=== PATIENT | female | born 1970 | race Two or more races ===

== ENCOUNTER 2016-08-22 00:35 | Emergency (ER) | payer MEDICAID ==
[~2016-08-22] VITALS: Ht 167.6 cm; Wt 81.6 kg
[2016-08-22 00:58] VITALS: BP 101/66
== END 2016-08-22 02:56 | disposition left against medical advice (07) ==
LOC: EDBD 00:35 → ER 00:35
DX: N64.4 Mastodynia (principal); Z53.21 Procedure and treatment not carried out due to patient leaving prior to being seen by health care provider

== ENCOUNTER 2016-10-16 21:21 | Emergency (ER) | payer MEDICAID ==
[2016-10-16 21:42] VITALS: BP 122/84
== END 2016-10-17 01:14 | disposition home or self-care (01) ==
LOC: EDBD 21:21 → ER 21:24
DX: S02.401A Maxillary fracture, unspecified side, initial encounter for closed fracture (principal); S00.93XA Contusion of unspecified part of head, initial encounter; S00.83XA Contusion of other part of head, initial encounter; J32.0 Chronic maxillary sinusitis; J21.9 Acute bronchiolitis, unspecified; F17.210 Nicotine dependence, cigarettes, uncomplicated; K21.9 Gastro-esophageal reflux disease without esophagitis; Y08.89XA Assault by other specified means, initial encounter; Y93.89 Activity, other specified; Y99.8 Other external cause status; Y92.89 Other specified places as the place of occurrence of the external cause
CPT/HCPCS: 70450; 70486

== ENCOUNTER 2018-07-07 09:24 | Emergency (ER) | payer MEDICAID ==
[~2018-07-07] VITALS: Ht 157.5 cm; Wt 93.9 kg
[2018-07-07 12:19] VITALS: BP 108/65
== END 2018-07-07 12:21 | disposition home or self-care (01) ==
LOC: ER 09:27
DX: J02.9 Acute pharyngitis, unspecified (principal); K21.9 Gastro-esophageal reflux disease without esophagitis; F17.210 Nicotine dependence, cigarettes, uncomplicated

== ENCOUNTER 2018-07-13 09:40 | Emergency (ER) | payer MEDICAID ==
[~2018-07-13] VITALS: Ht 160 cm; Wt 99.8 kg
[2018-07-13 09:58] VITALS: BP 113/81
[2018-07-13] MEDS ORDERED: KETOROLAC TROMETH 60MG/2ML VIAL IM ONE (12:00)
== END 2018-07-13 12:20 | disposition home or self-care (01) ==
LOC: ER 09:40
DX: S83.92XA Sprain of unspecified site of left knee, initial encounter (principal); F17.210 Nicotine dependence, cigarettes, uncomplicated; K21.9 Gastro-esophageal reflux disease without esophagitis; X50.1XXA Overexertion from prolonged static or awkward postures, initial encounter; Y93.89 Activity, other specified; Y99.8 Other external cause status; Y92.89 Other specified places as the place of occurrence of the external cause
CPT/HCPCS: 73562; 96372; 99283; J1885

== ENCOUNTER 2021-02-26 17:05 | Emergency (ER) | payer MEDICAID ==
[~2021-02-26] VITALS: Ht 160 cm; Wt 90.7 kg
[2021-02-26 20:03] VITALS: BP 124/71
== END 2021-02-26 20:39 | disposition home or self-care (01) ==
LOC: ER 17:05
DX: S53.491A Other sprain of right elbow, initial encounter (principal); E66.9 Obesity, unspecified; K21.9 Gastro-esophageal reflux disease without esophagitis; F17.210 Nicotine dependence, cigarettes, uncomplicated; Z68.35 Body mass index [BMI] 35.0-35.9, adult; W22.8XXA Striking against or struck by other objects, initial encounter; Y93.89 Activity, other specified; Y92.89 Other specified places as the place of occurrence of the external cause; Y99.8 Other external cause status
CPT/HCPCS: 73080

== ENCOUNTER 2021-07-10 03:28 | Emergency (ER) | payer MEDICAID ==
[~2021-07-10] VITALS: Ht 160 cm; Wt 90.7 kg
[2021-07-10 05:27] VITALS: BP 110/72
== END 2021-07-10 05:37 | disposition home or self-care (01) ==
LOC: EDBD 03:28 → ER 03:28
DX: S80.01XA Contusion of right knee, initial encounter (principal); K21.9 Gastro-esophageal reflux disease without esophagitis; F17.210 Nicotine dependence, cigarettes, uncomplicated; W19.XXXA Unspecified fall, initial encounter; Y93.89 Activity, other specified; Y92.89 Other specified places as the place of occurrence of the external cause; Y99.8 Other external cause status
CPT/HCPCS: 73562

== ENCOUNTER 2021-09-29 02:22 | Emergency (ER) | payer MEDICAID ==
[~2021-09-29] VITALS: Ht 160 cm; Wt 90.7 kg
[2021-09-29 03:47] LABS: Basophils # (auto) 0.1 10 ^3/uL (0-0.2); Hemoglobin 14.7 g/dL (12.2-16.2); Lymphocytes # (auto) 3.4 10 ^3/uL (0.4-5.4); Monocytes # (auto) 0.4 10 ^3/uL (0-1.3); White Blood Cell 7.4 10^3/uL (4.4-10.8)
[2021-09-29 03:49] LABS: Basophils % (auto) 1.3 % (0.0-2.0); Eosinophils # (auto) 0.2 10 ^3/uL (0-0.8); Eosinophils % (auto) 3.3 % (0.0-7.0); Hematocrit 41.1 % (36.0-46.0); Lymphocytes % (auto) 46.2 % (10.0-50.0); Mean Corpuscular Hemoglobin 34.5 pg (28.0-32.0); Mean Corpuscular Hgb Conc. 35.8 g/dL (32.0-36.0); Mean Corpuscular Volume 96.3 fL (80.0-100.0); Monocytes % (auto) 5.8 % (0.0-12.0); Neutrophils # (auto) 3.2 10 ^3/uL (1.6-8.6); Neutrophils % (auto) 43.4 % (37.0-80.0); Nucleated Red Blood Cells % 0.1 %; Red Blood Cells 4.27 10^6/uL (4.0-5.20); Red Cell Distribution Width 12.6 % (11.8-14.3)
[2021-09-29 04:07] LABS: Albumin 3.5 g/dL (3.4-5.0); Magnesium 2.3 mg/dL (1.6-2.6); Potassium 3.4 mmol/L (3.5-5.1)
[2021-09-29 04:12] LABS: BUN/Creatinine Ratio 11.1; Bilirubin, Total 0.6 mg/dL (0.2-1.0); Total Protein 6.2 g/dL (6.4-8.2)
[2021-09-29 05:09] VITALS: BP 93/55
[2021-09-29] MEDS ORDERED: KETOROLAC TROMETH 30 MG/ML 1ML VIAL IV ONE (05:45)
== END 2021-09-29 05:55 | disposition home or self-care (01) ==
LOC: EDBD 02:22 → EDUNIT# 02:22 → ER 02:22
DX: R07.89 Other chest pain (principal); F17.210 Nicotine dependence, cigarettes, uncomplicated; J44.9 Chronic obstructive pulmonary disease, unspecified; K21.9 Gastro-esophageal reflux disease without esophagitis
CPT/HCPCS: 36415; 71045; 80053; 83735; 84443; 84484; 85025; 93005; 96374; 99285; J1885

== ENCOUNTER 2023-02-02 00:19 | Emergency (ER) | payer MEDICAID ==
[~2023-02-02] VITALS: Ht 160 cm; Wt 99.7 kg
[2023-02-02] MEDS ORDERED: CEPH500C PO (01:41)
[2023-02-02 01:58] VITALS: BP 116/53; PULSE 98; RESP 18; TEMP 97.7; O2SAT 95
== END 2023-02-02 02:05 | disposition home or self-care (01) ==
LOC: ER 00:19
DX: N64.59 Other signs and symptoms in breast (principal); J44.9 Chronic obstructive pulmonary disease, unspecified; K21.9 Gastro-esophageal reflux disease without esophagitis; F17.210 Nicotine dependence, cigarettes, uncomplicated

== ENCOUNTER 2023-09-01 03:17 | Emergency (ER) | payer MEDICAID ==
[~2023-09-01] VITALS: Ht 165.1 cm; Wt 90.7 kg
[~2023-09-01 03:17] MED LIST: CEPH500C PO
[2023-09-01 05:04] LABS: Basophils # (auto) 0.1 10 ^3/uL (0-0.2); Basophils % (auto) 1.5 % (0.0-2.0); Eosinophils # (auto) 0.1 10 ^3/uL (0-0.8); Eosinophils % (auto) 1.3 % (0.0-7.0); Hematocrit 45.3 % (36.0-46.0); Hemoglobin 15.6 g/dL (12.2-16.2); Lymphocytes # (auto) 3.5 10 ^3/uL (0.4-5.4); Lymphocytes % (auto) 39.5 % (10.0-50.0); Mean Corpuscular Hemoglobin 32.1 pg (28.0-32.0); Mean Corpuscular Hgb Conc. 34.4 g/dL (32.0-36.0); Mean Corpuscular Volume 93.3 fL (80.0-100.0); Monocytes # (auto) 0.5 10 ^3/uL (0-1.3); Monocytes % (auto) 5.2 % (0.0-12.0); Neutrophils # (auto) 4.6 10 ^3/uL (1.6-8.6); Neutrophils % (auto) 52.5 % (37.0-80.0); Nucleated Red Blood Cells % 0.1 %; Red Blood Cells 4.86 10^6/uL (4.0-5.20); Red Cell Distribution Width 13.6 % (11.8-14.3); White Blood Cell 8.8 10^3/uL (4.4-10.8)
[2023-09-01 05:10] VITALS: PULSE 83; RESP 20; O2SAT 97
[2023-09-01 05:13] LABS: Chloride 105 mmol/L (98-107); Potassium 3.4 mmol/L (3.5-5.1); Sodium 136 mmol/L (136-145)
[2023-09-01 05:14] LABS: Anion Gap 11 (5-15); Carbon Dioxide 20 mmol/L (20-30)
[2023-09-01 05:15] LABS: Calcium 9.3 mg/dL (8.5-10.1)
[2023-09-01 05:20] LABS: BUN/Creatinine Ratio 8.2 (10.0-20.0); Blood Alcohol 163.4 mg/dL (<10); Blood Urea Nitrogen 6 mg/dL (9-23); Glucose 122 mg/dL (74-106)
[2023-09-01 05:23] LABS: Acetaminophen < 2.0 UG/ML (10.0-20.0)
[2023-09-01 05:27] LABS: Salicylate < 3.0 mg/dL (2.8-20.0)
[2023-09-01 08:10] VITALS: RESP 16; O2SAT 99
[2023-09-01 09:56] LABS: Chloride 108 mmol/L (98-107)
[2023-09-01 09:57] LABS: Anion Gap 10 (5-15); Carbon Dioxide 20 mmol/L (20-30); Sodium 138 mmol/L (136-145)
[2023-09-01 09:58] LABS: Calcium 9.2 mg/dL (8.5-10.1)
[2023-09-01 10:03] LABS: BUN/Creatinine Ratio 7.4 (10.0-20.0); Blood Urea Nitrogen 5 mg/dL (9-23); Glucose 111 mg/dL (74-106)
[2023-09-01 20:40] VITALS: PULSE 82; RESP 16; O2SAT 97
[2023-09-02 10:30] VITALS: BP 111/50; PULSE 78; RESP 20; TEMP 97.9; O2SAT 97
[2023-09-02] MEDS: PANTOPRAZOLE 40 MG TAB PO ONE (15:54)
== END 2023-09-02 16:45 | disposition left against medical advice (07) ==
LOC: ER 03:17 → EDBD 03:17 → ER 09-02 16:45
DX: R45.851 Suicidal ideations (principal); F10.10 Alcohol abuse, uncomplicated; J44.9 Chronic obstructive pulmonary disease, unspecified; F17.210 Nicotine dependence, cigarettes, uncomplicated
CPT/HCPCS: 36415; 80048; 80320; 80329; 85025; 93005

== ENCOUNTER 2024-04-15 11:51 | Emergency (ER) | payer MEDICAID ==
[~2024-04-15] VITALS: Ht 160 cm; Wt 102.5 kg
[2024-04-15 13:12] VITALS: BP 130/67; PULSE 80; RESP 18; TEMP 98.2; O2SAT 95
[2024-04-15] MEDS ORDERED: BENZ100C97 PO (13:48)
[2024-04-15] MEDS ORDERED: ALBU108A5 IN (13:48)
[2024-04-15] MEDS ORDERED: AZIT-43 PO (13:48)
[2024-04-15] MEDS ORDERED: PROM1SOL4 PO (13:48)
--- NOTE | 2024-04-15 13:48 | ED.PDOC ---
SOB-HPI HPI Comments 53-year-old smoker presents with a chief complaint of a nonproductive cough x2 weeks. Able to get minimal relief with [id number] ibuprofen. 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 Family History Family History: Reviewed,noncontributory to illness Social History Smoker: Cigarettes, Less Than 1 Pack/Day Alcohol: Occasionally Drugs: Denies Drug Use Lives In: Home All Other Systems: Reviewed and Negative (Per HPI) Physical Exam General Appearance: No Apparent Distress, Normal HEENT: Normal ENT Inspection, Pharynx Normal, TMs Normal Neck: Full Range of Motion, Non-Tender, Normal, Normal Inspection Respiratory: Chest Non-Tender, Lungs Clear, No Accessory Muscle Use, No Respiratory Distress, Normal Breath Sounds Cardiovascular: No Edema, No JVD, No Murmur, No Gallop, Normal Peripheral Pulses, Regular Rate/Rhythm Breast Exam: Deferred Gastrointestinal: No Organomegaly, Non Tender, No Pulsatile Mass, Normal Bowel Sounds, Soft Genitalia: Deferred Pelvic: Deferred Rectal: Deferred Extremities: No calf tenderness, Normal capillary refill, Normal inspection, Normal range of motion, Non-tender, No pedal edema Musculoskeletal : Apperance: Normal Neurologic: Alert, conference services director II-XII nml as Tested, No Motor Deficits, Normal Affect, Normal Mood, No Sensory Deficits Cerebellar Function: Normal Reflexes: Normal Skin: Dry, Normal Color, Warm Lymphatic: No Adenopathy Was a procedure done? Was a procedure done?: No Differential Dx Differential Diagnosis: Bronchitis X-Ray, Labs, Meds, VS Vital Signs Date Time Temp Pulse Resp B/P (MAP) Pulse Ox O2 Delivery O2 Flow Rate FiO2 04/15/24 13:12 98.2 95 18 130/67 (88) 95 98.2 04/15/24 13:12 80 18 95 Room Air 04/15/24 12:40 97.9 81 18 132/65 (87) 95 X-Ray, Labs, Meds, VS Comment Empiric treatment. No red flags. The patient nontoxic non ill-appearing. Smoking cessation advised. Return precautions discussed Time of 1ST Reevaluation: 13:46 Reevaluation 1ST: Improved Patient Education/Counseling: Diagnosis, Treatment Family Education/Counseling: Diagnosis, Treatment Departure 1 Departure Time of Disposition: 13:46 Impression: Primary Impression: Bronchitis Disposition: HOME / SELF CARE / HOMELESS Condition: Stable e-Prescriptions Albuterol Sulfate (Albuterol Sulfate Hfa) 108 Mcg/Act Aer 108 MCG IN Q6HPRN PRN for 30 Days, #1 AER 0 Refills Prov: NEWTON TOMAS NP 04/15/24 Azithromycin (Azithromycin) 250 Mg Tab 250 MG PO DAILY MDD 500 for 5 Days, #6 TAB 0 Refills 2 TABLETS ORALLY ON DAY ONE, THEN 1 TABLET ORALLY DAILY FOR 4 DAYS Prov: NEWTON TOMAS NP 04/15/24 Promethazine-Dm (Promethazine Dm 6.25-15 mg/5Ml) 1 Keerthi Keerthi 5 ML PO TID for 10 Days, #150 ML 0 Refills Prov: NEWTON TOMAS NP 04/15/24 Benzonatate (Benzonatate) 100 Mg Cap 1 CAP PO TID for 10 Days, #30 CAP 0 Refills Prov: NEWTON TOMAS NP 04/15/24 Discharged With: Self Critical Care Note Critical Care Time?: No Stability Stability form required: No Heart Score Heart Score: Heart Score Response (Comments) Value History N/A 0 EKG N/A 0 Age N/A 0 Risk Factors N/A 0 Troponin N/A 0 Total 0 NEWTON TOMAS NP Apr 15, 2024 13:48
[2024-04-15] MEDS: DexAMETHasone SOD PHOS 10MG/1ML VIAL INJ IM ONE (13:59)
== END 2024-04-15 14:05 | disposition home or self-care (01) ==
LOC: ER 11:51
DX: J40 Bronchitis, not specified as acute or chronic (principal); F17.210 Nicotine dependence, cigarettes, uncomplicated; J44.9 Chronic obstructive pulmonary disease, unspecified
CPT/HCPCS: 96372; 99283; J1100

== ENCOUNTER 2024-11-01 03:39 | Emergency (ER) | payer MEDICAID ==
[~2024-11-01] VITALS: Ht 160 cm; Wt 86.2 kg
[~2024-11-01 03:39] MED LIST changes: +ALBU108A5 IN; +AZIT-43 PO; +BENZ100C97 PO; +PROM1SOL4 PO
--- NOTE | 2024-11-01 04:40 | ED.PDOC ---
GI ASSESSMENT HPI Comments 54-year-old female came to ER for GI bleed. Patient does have hemorrhoids. States for the past 4-5 months she has been having rectal pain. For the past 2 days she has been having bright red rectal bleeding, progressively worsening. Denies any nausea or vomiting. Denies any constipation. Chief Complaint: GI Bleed Time Seen by MD: 04:39 Primary Care Provider: Matthew Buck Notes: Nurses Notes Allergies: Coded Allergies: NO KNOWN ALLERGIES (Unverified , 12/23/12) Home Meds Active Scripts Albuterol Sulfate (Albuterol Sulfate Hfa) 108 Mcg/Act Aer, 108 MCG IN Q6HPRN PRN for 30 Days, #1 AER 0 Refills Prov:NEWTON TOMAS NP 04/15/24 Azithromycin (Azithromycin) 250 Mg Tab, 250 MG PO DAILY MDD 500 for 5 Days, #6 TAB 0 Refills 2 TABLETS ORALLY ON DAY ONE, THEN 1 TABLET ORALLY DAILY FOR 4 DAYS Prov:NEWTON TOMAS NP 04/15/24 Promethazine-Dm (Promethazine Dm 6.25-15 mg/5Ml) 1 Keerthi Keerthi, 5 ML PO TID for 10 Days, #150 ML 0 Refills Prov:NEWTON TOMAS NP 04/15/24 Benzonatate (Benzonatate) 100 Mg Cap, 1 CAP PO TID for 10 Days, #30 CAP 0 Refills Prov:NEWTON TOMAS NP 04/15/24 Cephalexin Monohydrate (Cephalexin) 500 Mg Cap, 1 CAP PO QID for 7 Days, #28 CAP 0 Refills Prov:MARTIN ORONA 02/02/23 Information Source: Patient Mode of Arrival: EMS Timing: Days Duration: Intermittent Prehospital treatment: None Quality: Burning Vomitus: None Stool: Blood Streaked Severity: Moderate Recent: Other (Hemorrhoids) Pain Location: Other (Rectal pain) Associated sign and symptoms: Blood in Stool Review of Systems REVIEW OF SYSTEMS: No fever, no chills, or fatigue HEENT: No sore throat, no earache, no congestion, no neck pain. Cardiac: No chest pain. No palpitations. Lungs: No shortness of breath, no cough. GI: No nausea, no vomiting, no diarrhea, no constipation, no abdominal pain (+) rectal pain/ bleeding : No dysuria, frequency, or urgency. No hematuria. Musculoskeletal: No joint pain , no joint swelling, no extremity edema. Skin: No rash, no itching. Neuro: No headache, no dizziness, no weakness Vital Signs Vital Signs Date Time Temp Pulse Resp B/P (MAP) Pulse Ox O2 Delivery O2 Flow Rate FiO2 11/01/24 07:57 98.7 58 17 100/68 (79) 97 98.7 11/01/24 07:57 Room Air Physical Exam General: Awake, alert and oriented. No acute distress. Skin: Skin in warm, dry and intact. Appropriate color for ethnicity. Nailbeds pink with no cyanosis. HEENT: The head is normocephalic and atraumatic. Conjunctivae are clear without exudates or hemorrhage. Neck: The neck is supple with normal range of motion. Cardiac: Heart rate and rhythm are normal. No murmurs, gallops, or rubs are auscultated. Respiratory: No signs of respiratory distress. Lung sounds are clear in all lobes bilaterally without rales, rhonchi, or wheezes. Abdominal: Abdomen is soft, non-tender without distention. Bowel sounds are present and normoactive in all four quadrants. : No rectal bleeding, positive perirectal tenderness, no hemorrhoid or fissure noted Extremities: Upper and lower extremities are atraumatic in appearance without deformity or edema. Neurological: The patient is awake, alert and oriented to person, place, and time with normal speech. Speech is clear. There is no facial asymmetry. Psychiatric: Appropriate mood and affect. Good judgement and insight. 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 Was a procedure done?: No GI differential Dx Differential Diagnosis: Gastritis/PUD, Gastroenteritis, GI hemorrhage, Hernia, Inflammatory BD, Mass, Anemia, Other (Constipation, rectal fissure, Hemorrhoid, rectal abscess, other) X-Ray, Labs, Meds, VS Vital Signs Date Time Temp Pulse Resp B/P (MAP) Pulse Ox O2 Delivery O2 Flow Rate FiO2 11/01/24 07:57 98.7 58 17 100/68 (79) 97 98.7 11/01/24 07:57 58 16 97 Room Air 11/01/24 06:02 60 20 101/65 (77) 98 11/01/24 03:45 98.9 73 16 123/74 (90) 99 98.9 Lab Test 11/01/24 05:45 Range/Units White Blood Count 7.6 4.4-10.8 10^3/uL Red Blood Count 4.83 4.0-5.20 10^6/uL Hemoglobin 16.1 12.2-16.2 g/dL Hematocrit 45.9 36.0-46.0 % Mean Corpuscular Volume 94.9 80.0-100.0 fL Mean Corpuscular Hemoglobin 33.3 H 28.0-32.0 pg Mean Corpuscular Hemoglobin Concent 35.1 32.0-36.0 g/dL Red Cell Distribution Width 13.1 11.8-14.3 % Platelet Count 255 140-450 10^3/uL Mean Platelet Volume 9.2 6.9-10.8 fL Neutrophils (%) (Auto) 37.4 37.0-80.0 % Lymphocytes (%) (Auto) 53.9 H 10.0-50.0 % Monocytes (%) (Auto) 4.5 0.0-12.0 % Eosinophils (%) (Auto) 2.8 0.0-7.0 % Basophils (%) (Auto) 1.4 0.0-2.0 % Neutrophils # (Auto) 2.9 1.6-8.6 10 ^3/uL Lymphocytes # (Auto) 4.1 0.4-5.4 10 ^3/uL Monocytes # (Auto) 0.3 0-1.3 10 ^3/uL Eosinophils # (Auto) 0.2 0-0.8 10 ^3/uL Basophils # (Auto) 0.1 0-0.2 10 ^3/uL Nucleated Red Blood Cells 0.1 % Sodium Level 141 136-145 mmol/L Potassium Level 3.9 3.5-5.1 mmol/L Chloride Level 109 H 98-107 mmol/L Carbon Dioxide Level 23 20-31 mmol/L Anion Gap 9 5-15 Blood Urea Nitrogen 6 L 9-23 mg/dL Creatinine 0.74 0.550-1.02 mg/dL Glomerular Filtration Rate Calc 96 >90 mL/min BUN/Creatinine Ratio 8.1 L 10.0-20.0 Serum Glucose 107 H 74-106 mg/dL Calcium Level 9.0 8.7-10.4 mg/dL Current Medications Medications (Trade) Dose Ordered Sig/Adalgisa Route Start Time Stop Time Status Last Admin Tramadol HCl (Ultram) 50 mg ONCE ONCE PO 11/01/24 04:45 11/01/24 04:46 DC 11/01/24 05:50 Acetaminophen (Tylenol Tablet) 650 mg ONCE ONCE PO 11/01/24 04:45 11/01/24 04:46 DC 11/01/24 05:50 Ketorolac Tromethamine (Toradol Injection) 30 mg ONCE ONCE IM 11/01/24 04:45 11/01/24 04:46 DC 11/01/24 05:51 Time of 1ST Reevaluation: 04:32 Reevaluation 1ST: Unchanged Time of 2ND Reevaluation: 09:31 Reevaluation 2ND: Improved Patient Education/Counseling: Diagnosis, Treatment, Prognosis, Need For Follow Up Family Education/Counseling: No Family Present Comments pt has a history of hemorrhoids. she does not use any medications. she feels this is her hemorrhoids flaring up. i will start her on steroid, nitrotopical and stool softener. her workup is unremarkable for more concerning issues, such as colitis, abscess, fistula, proctitis Change of Shift?: Yes (Signed out to Dr. Maya @[id number]) SEPSIS Sepsis Screen Date sepsis recognized/suspect: Nov 01, 2024 Time Sepsis recognized/suspect: 346 Recent Procedure: No On Antibiotic Therapy: No Respiratory Rate >20: No Heart Rate >90: No Temp<36 C (96.8 F) or >38.3 C: No SBP <90 or MAP <65 mmHG: No New Acute Mental Status Change: No Is the patient on CPAP, BIPAP,: No Physician Orders Pelvis With Contrast Only (11/01/24 04:14) Vital Signs Date Time Temp Pulse Resp B/P (MAP) Pulse Ox O2 Delivery O2 Flow Rate FiO2 11/01/24 07:57 98.7 58 17 100/68 (79) 97 98.7 11/01/24 07:57 58 16 97 Room Air 11/01/24 06:02 60 20 101/65 (77) 98 11/01/24 03:45 98.9 73 16 123/74 (90) 99 98.9 Laboratory Tests Test 11/01/24 05:45 White Blood Count 7.6 10^3/uL (4.4-10.8) Medications Medications Dose Ordered Sig/Adalgisa Route Start Time Stop Time Status Last Admin Dose Admin Acetaminophen 650 mg ONCE ONCE PO 11/01/24 04:45 11/01/24 04:46 DC 11/01/24 05:50 Ketorolac Tromethamine 30 mg ONCE ONCE IM 11/01/24 04:45 11/01/24 04:46 DC 11/01/24 05:51 Tramadol HCl 50 mg ONCE ONCE PO 11/01/24 04:45 11/01/24 04:46 DC 11/01/24 05:50 Departure 1 Departure Time of Disposition: 09:33 Impression: Primary Impression: Rectal pain Additional Impression: Hemorrhoid Disposition: 01 HOME / SELF CARE / HOMELESS Condition: Good Written Prescriptions use sitz baths as recommended. follow up with your doctor e-Prescriptions Docusate Sodium (Colace) 100 Mg Cap 1 CAP PO BID, #30 CAP Prov: NADYA MAYA MD 11/01/24 Hydrocortisone Base (Anusol-Hc) 2.5 % Cre 1 APPLIC TOP BID, #30 GRAMS 1 Refill Prov: NADYA MAYA MD 11/01/24 Nitroglycerin (Intra-Anal) (Nitroglycerin) 0.4 % Oin 0.4 % NC DAILY PRN, #1 OIN Prov: NADYA MAYA MD 11/01/24 Discharged With: Self Critical Care Note Critical Care Time?: No Stability Stability form required: No Heart Score Heart Score: Heart Score Response (Comments) Value History N/A 0 EKG N/A 0 Age N/A 0 Risk Factors N/A 0 Troponin N/A 0 Total 0 I personally scribed for MIGUELINA ADRIAN MD ([email or web address]) on 11/01/24 at 04:40. Electronically submitted by Alpesh Dia ([facility]). MIGUELINA ADRIAN MD Nov 01, 2024 04:40 NADYA MAYA MD Nov 01, 2024 09:35
[2024-11-01] MEDS: ACETAMINOPHEN 325 MG TAB PO ONE (05:50)
[2024-11-01] MEDS: traMADol HCL 50 MG TAB PO ONE (05:50)
[2024-11-01] MEDS: KETOROLAC TROMETH 30 MG/ML 1ML VIAL IM ONE (05:51)
[2024-11-01 06:01] LABS: Basophils # (auto) 0.1 10 ^3/uL (0-0.2); Basophils % (auto) 1.4 % (0.0-2.0); Eosinophils # (auto) 0.2 10 ^3/uL (0-0.8); Eosinophils % (auto) 2.8 % (0.0-7.0); Hematocrit 45.9 % (36.0-46.0); Hemoglobin 16.1 g/dL (12.2-16.2); Lymphocytes # (auto) 4.1 10 ^3/uL (0.4-5.4); Lymphocytes % (auto) 53.9 % (10.0-50.0); Mean Corpuscular Hemoglobin 33.3 pg (28.0-32.0); Mean Corpuscular Hgb Conc. 35.1 g/dL (32.0-36.0); Mean Corpuscular Volume 94.9 fL (80.0-100.0); Monocytes # (auto) 0.3 10 ^3/uL (0-1.3); Monocytes % (auto) 4.5 % (0.0-12.0); Neutrophils # (auto) 2.9 10 ^3/uL (1.6-8.6); Neutrophils % (auto) 37.4 % (37.0-80.0); Nucleated Red Blood Cells % 0.1 %; Platelet Count (auto) 255 10^3/uL (140-450); Red Blood Cells 4.83 10^6/uL (4.0-5.20); Red Cell Distribution Width 13.1 % (11.8-14.3); White Blood Cell 7.6 10^3/uL (4.4-10.8)
[2024-11-01 06:10] LABS: Potassium 3.9 mmol/L (3.5-5.1); Sodium 141 mmol/L (136-145)
[2024-11-01 06:12] LABS: Anion Gap 9 (5-15); Carbon Dioxide 23 mmol/L (20-31)
[2024-11-01 06:14] LABS: Chloride 109 mmol/L (98-107)
[2024-11-01 06:17] LABS: BUN/Creatinine Ratio 8.1 (10.0-20.0)
[2024-11-01 06:18] LABS: Blood Urea Nitrogen 6 mg/dL (9-23); Glucose 107 mg/dL (74-106)
[2024-11-01] MEDS: LIDOCAINE 2% JELLY 11ml (GLYDO) ONE (06:21)
[2024-11-01] MEDS: LIDOCAINE 2% JELLY 11ml (GLYDO) UR ONE (06:21)
[2024-11-01] MEDS: IOHEXOL 300 MG/ML 100ML BOTTLE IJ ONE (08:16)
--- NOTE | 2024-11-01 09:00 | DVH ---
CT PELVIS WITH CONTRAST ONLY HISTORY: Rectal pain, rectal bleeding, Rule out rectal abscess COMPARISON: None PROCEDURE: Helical CT images were obtained of the pelvis with intravenous contrast. Sagittal and cor onal reconstructions are provided. ORAL CONTRAST: None. ADDITIONAL IMAGES: None TOTAL RADIATION DOSE: CTDIvol: 24 mGy DLP: 940 mGy x cm FINDINGS: BOWEL: Normal. Normal appendix. VISUALIZED KIDNEYS AND URETER: Normal. BLADDER: Normal. REPRODUCTIVE ORGANS: Normal. LYMPH NODES: No lymphadenopathy. PERITONEUM / RETROPERITONEUM: Normal. VESSELS:Normal ABDOMINAL WALL: Normal. BONES: Normal. IMPRESSION: There is no focal fluid collection to suggest for an abscess. No hyperdense luminal contrast material is seen to suggest for bleeding.
[2024-11-01] MEDS ORDERED: NITR0.4O2 PR (09:34)
[2024-11-01] MEDS ORDERED: HYDR2.5C39 TOP (09:34)
[2024-11-01] MEDS ORDERED: DOCU-94 PO (09:34)
[2024-11-01 09:52] VITALS: BP 102/57; PULSE 63; RESP 17; TEMP 98.4; O2SAT 96
== END 2024-11-01 09:55 | disposition home or self-care (01) ==
LOC: EDBD 03:39 → ER 03:39
DX: K62.5 Hemorrhage of anus and rectum (principal); K62.89 Other specified diseases of anus and rectum; J44.9 Chronic obstructive pulmonary disease, unspecified; Z87.19 Personal history of other diseases of the digestive system; F17.210 Nicotine dependence, cigarettes, uncomplicated; F10.90 Alcohol use, unspecified, uncomplicated; Z98.890 Other specified postprocedural states; Z79.899 Other long term (current) drug therapy; Y90.9 Presence of alcohol in blood, level not specified
CPT/HCPCS: 36415; 72193; 80048; 85025; 96372; 99285; J1885; Q9967